=== PATIENT | male | born 1980 | race Caucasian/White ===

== ENCOUNTER 2023-11-22 08:46 | Emergency (ER) | payer OTHER, SELFPAY ==
[2023-11-22 08:58] VITALS: BP 120/90; PULSE 101; RESP 16; TEMP 37; O2SAT 98
--- NOTE | 2023-11-22 09:14 | ED.URI ---
HPI - URI/Sore Throat General Chief Complaint: Upper Respiratory Infection Stated Complaint: Fever Time Seen by Provider: 11/22/23 09:02 Source: patient and RN notes reviewed Mode of arrival: ambulatory Limitations: no limitations History of Present Illness HPI Narrative: Patient presents today with a 5 day history of subjective fever, chills, sweats, cough, sore throat, body aches, congestion, fatigue. Denies shortness of breath or chest pain. He has been taking Benadryl without much relief and currently rates his pain 310. Related Data Home Medications Medication Instructions Recorded Confirmed No Home Medications 11/22/23 11/22/23 Allergies Allergy/AdvReac Type Severity Reaction Status Date / Time No Known Allergies Allergy Unverified 07/31/18 12:11 Review of Systems Review of Systems: CONSTITUTIONAL: + body aches, fever, chills, sweats, fatigue EYES: Denies visual changes, redness, or discharge. ENT: Denies rhinorrhea, or otalgia.+ congestion, sore throat CARDIOVASCULAR: Denies chest pain, palpitations, or edema. RESPIRATORY: Denies dyspnea.+ cough GASTROINTESTINAL: Denies abdominal pain, nausea, vomiting, or diarrhea. GENITOURINARY: Denies dysuria or hematuria. SKIN: Denies rash, itching, or wounds. MUSCULOSKELETAL: Denies back pain, joint pain, or myalgia. NEUROLOGIC: Denies headache, numbness, tingling, or weakness. PSYCH: Denies depression or anxiety. PMFSH Comments At time of signature, I have reviewed and agree with nursing past medical, surgical, social and family history unless otherwise noted. Please see nursing chart for further information. There is no relevant family history pertinent to the presenting complaint Exam Narrative: GENERAL: Well-appearing, well-nourished, and in no acute distress. HEAD: Normocephalic, atraumatic. EYES: EOMI. No redness or drainage. Conjunctivae normal. ENT: Mucous membranes pink and moist. Nares mildly congested. No rhinorrhea. TMs normal bilaterally. Throat normal. Uvula midline. NECK: Normal AROM. Supple. No lymphadenopathy. CHEST: No respiratory distress. Clear to auscultation. HEART: Regular rate and rhythm. No murmur appreciated. EXTREMITIES: Normal range of motion. No edema. SKIN: Warm, dry, no rash. Capillary refill normal. Normal skin turgor. NEURO: No focal deficits. Alert and oriented x3. Gait steady. PSYCH: Normal affect. No signs of depression or anxiety. Course Course Level of Care: Express Care Visit Vital Signs Vital signs: Vital Signs Temperature 98.6 F 11/22/23 08:58 Pulse Rate 101 H 11/22/23 08:58 Respiratory Rate 16 11/22/23 08:58 Blood Pressure 120/90 11/22/23 08:58 Pulse Oximetry 98 11/22/23 08:58 Oxygen Delivery Room Air 11/22/23 08:58 Temperature 98.6 F 11/22/23 08:58 Pulse Rate 101 H 11/22/23 08:58 Respiratory Rate 16 11/22/23 08:58 Blood Pressure 120/90 11/22/23 08:58 Pulse Oximetry 98 11/22/23 08:58 Oxygen Delivery Room Air 11/22/23 08:58 Reviewed MDM - URI/Sore Throat MDM Narrative Medical decision making narrative: influenza B positive. No prescription medications indicated at this time. Discussed length of illness an [id number] medication treatment. Anticipatory guidance given. Differential Diagnosis Differential diagnosis: Likely upper respiratory infection, sinusitis, viral infection, influenza and other (Strep throat) Lab Data Attestation: I reviewed the patient's lab results. Labs: Influenza A Screen Negative Reference Range: Negative Influenza B Screen Positive Reference Range: Negative Strep Screen Presumptive Negative *(Reference Range: Negative)* Critical Care Time Critical Care Time Critical Care Time: No Discharge Plan Discharge Clinical Imp
== END 2023-11-22 09:23 | disposition home or self-care (01) ==
PROVIDERS: Emergency Provider Nurse Practitioner
DX: J10.1 Influenza due to other identified influenza virus with other respiratory manifestations (principal)
CPT/HCPCS: 87081; 87804; 87880; 99213; G0463